=== PATIENT | female | born 1975 ===

== ENCOUNTER 2018-11-09 10:25 | Emergency (ER) | payer SELFPAY ==
[~2018-11-09] VITALS: Ht 177.8 cm; Wt 83.6 kg
[2018-11-09 10:28] VITALS: TEMP 98.4
[2018-11-09] MEDS ORDERED: PERCOCET 325 MG1 TA2 PO (11:38)
[2018-11-09] MEDS ORDERED: CELEXA 20MG20 MG/TAB PO (12:21)
[2018-11-09 12:45] VITALS: BP 114/51; PULSE 74
== END 2018-11-09 12:59 | disposition home or self-care (01) ==
LOC: COL.ER 10:25
DX: S82.831A Other fracture of upper and lower end of right fibula, initial encounter for closed fracture (principal); S82.841A Displaced bimalleolar fracture of right lower leg, initial encounter for closed fracture; F32.9 Major depressive disorder, single episode, unspecified; F41.9 Anxiety disorder, unspecified; W00.0XXA Fall on same level due to ice and snow, initial encounter; Y92.410 Unspecified street and highway as the place of occurrence of the external cause
CPT/HCPCS: J1170; Q4045

== ENCOUNTER 2018-11-13 06:18 | Day surgery (SDC) | payer SELFPAY ==
[2018-11-13] VITALS (7 sets, daily range): BP systolic 112–122; BP diastolic 49–74; PULSE 71–77; TEMP 98–98.4
[~2018-11-13] VITALS: Ht 165.1 cm; Wt 88.4 kg
[~2018-11-13 06:18] MED LIST: CELEXA 20MG20 MG/TAB PO; PERCOCET 325 MG1 TA2 PO
--- NOTE | 2018-11-13 10:10 | NUR ---
Patient returns to room 2 per cart and arouses to verbal stimuli. Foot of cart elevated and ice bags in place on both sides of right ankle. Toes warm to touch. IV fluids infusing and siderails up x2. Family at side. Patient taking sips of water. Denies pain when asked and right leg is numb due to block that was placed pre-op. Call light in reach.
[2018-11-13] MEDS ORDERED: NORCO 325 MG-7.1 TAB PO (10:19)
--- NOTE | 2018-11-13 10:25 | NUR ---
Resting and sipping on water. Family in room.
--- NOTE | 2018-11-13 10:40 | NUR ---
Room air sats 99%. Continues to rest and the right leg is elevated on pillows. Ice bag in place.
--- NOTE | 2018-11-13 10:55 | NUR ---
Offers no complaints and right leg remains numb. Toes are warm to touch.
--- NOTE | 2018-11-13 11:05 | NUR ---
Assisted up to the bathroom with the use of crutches and spouse assisting. Voids and returns to room. Foot of cart elevated and ice bags in place. Son in room and assists with translating. Eating toast and drinking juice.
--- NOTE | 2018-11-13 11:23 | NUR ---
IV discontinued and given dismissal instructions. Reinforced need to keep the right leg elevated and ice bags in place. Reviewed instructions with son and patient and both verbalize understanding of these. Provided script for [employer]. Assisted with dressing.
--- NOTE | 2018-11-13 11:39 | NUR ---
Patient dismissed to home per private vehicle driven by spouse and taken to the front door per wheelchair and assisted into vehicle. Dismissal instructions in hand.
== END 2018-11-13 11:39 | disposition home or self-care (01) ==
LOC: SDCO 06:18
DX: S82.841A Displaced bimalleolar fracture of right lower leg, initial encounter for closed fracture (principal); F41.9 Anxiety disorder, unspecified
CPT/HCPCS: C1713; J0690; J1100; J1885; J2250; J2405; J2704; J3010; J7120

== ENCOUNTER → 2022-12-25 | Outpatient (CLI) | payer SELFPAY ==
[~2022-12-25] MED LIST changes: +NORCO 325 MG-7.1 TAB PO
== END ==
LOC: MC.RAD 14:00
DX: N60.42 Mammary duct ectasia of left breast (principal)